=== PATIENT | female | born 1985 | race Two or more races ===

== ENCOUNTER 2018-10-06 21:25 | Emergency (ER) | payer SELFPAY ==
[~2018-10-06] VITALS: Ht 154.9 cm; Wt 97.5 kg
[2018-10-07 02:47] VITALS: BP 142/89
[2018-10-07] MEDS ORDERED: HYDROcodone-ACET 10/325MG TAB PO ONE (03:30)
[2018-10-07] MEDS ORDERED: BACLOFEN 10 MG TAB PO ONE (03:30)
== END 2018-10-07 04:05 | disposition home or self-care (01) ==
LOC: ER 21:32
DX: M62.838 Other muscle spasm (principal); M54.2 Cervicalgia; R51 Headache; M54.9 Dorsalgia, unspecified; V49.49XA Driver injured in collision with other motor vehicles in traffic accident, initial encounter; Y93.89 Activity, other specified; Y99.8 Other external cause status; Y92.410 Unspecified street and highway as the place of occurrence of the external cause
CPT/HCPCS: 72100